=== PATIENT | female | born 1970 | race Caucasian/White ===

== ENCOUNTER 2018-08-29 08:11 | Day surgery (SDC) | payer BC ==
--- OUTSIDE RECORDS SUMMARY | 2018-08-29 08:13 | XMS REPORT ---
:1970 [facility] Address [address] [place] [address] [address] [place] [address] Care Team Providers Name Role Phone BUBBA SANTIAGO Primary Care Provider Unavailable BUBBA SANTIAGO Unavailable Unavailable Problems This patient has no known problems. Allergies, Adverse Reactions, Alerts This patient has no known allergies or adverse reactions. Medications This patient has no known medications. Encounters Start End Encounter Admission Attending Care Care Encounter Date/Time Date/Time Type Type Clinicians Facility Department ID 2018-03-11 2018-03-11 Outpatient [facility] [id number] 20:03:00 20:03:00 BUBBA Results Test Description Test Time Test Comments Text Results Atomic Results Result Comments D-Dimer, Quantitative 2018-03-12 21:38:00 Test Item Value Reference Range Comments D-Dimer, Quant (test 222 ng/mL 0-500 Please note Change in unit of code=DDQNT) measure from mg/L FEU to ng/mLA cutoff of less than 500 ng/mL DD has a negative predictive value of100% for DVT pzd261% for PE.When using D-Dimer to help rule out DVT or PE, clinical information anddisease probability should be considered.Elevated D-Dimer values are not specific for thromboembolism. Lipid [id number] 21:16:00 Test Item Value Reference Range Comments Cholesterol (test 185 mg/dL 0-200 code=CHOL) Triglycerides (test 139 mg/dL 9-200 code=TRIG) HDL (test code=HDL) 36 mg/dL 50-60 Chol/HDL (test 5.1 Ratio 0.0-4.4 code=CHOLPHDL) LDL, Calculated (test 121 mg/dL 0-130 (NOTE)RISK OF HEART code=LDLC) DISEASEPublished by [place] Heart AssociationAnalyte Optimal Boderline Increased RiskCHOL <200 200-239 >240TRIG <150 150-199 >200HDL Male: >60 <40HDL Female: >60 <50LDL <100 130-159 >160LDL NEAR OPTIMAL IS 100-129 VLDL (test code=VLDL) 28 mg/dL 5-40 LDL/HDL (test code=LDLPHDL) 3 Comprehensive Metabolic [id number] 21:16:00 Test Item Value Reference Range Comments Sodium (test code=NA) 145 mmol/L 135-145 Potassium (test code=K) 4.0 mmol/L 3.5-5.1 Chloride (test code=CL) 105 mmol/L 98-105 Carbon Dioxide (test 25 mmol/L 22-29 code=CO2) Glucose (test code=GLU) 100 mg/dL 70-115 Blood Urea Nitrogen (test 20 mg/dL 6-20 code=BUN) Creatinine (test 1.2 mg/dL 0.5-0.9 code=CREAT) Calcium (test code=CA) 9.1 mg/dL 8.3-10.5 Prot Total (test code=TP) 6.7 g/dL 6.4-8.3 Albumin (test code=ALB) 4.2 g/dL 3.5-5.2 A/G Ratio (test 1.7 Ratio code=AGRATIO) Globulin (test code=GLOB) 2.5 2.9-3.1 Bili Total (test 0.8 mg/dL 0.1-0.9 code=TBIL) Alk Phos (test 107 U/L 35-104 code=APHOS) AST (test code=AST) 21 U/L 1-32 ALT (test code=ALT) 22 U/L 1-33 BUN/Creatinine Ratio 16.7 (test code=BCRATIO) Anion Gap (test 15 mmol/L 7-16 code=AGAP) Estimated GFR (test 51 mL/min/1.73m2 eGFR (estimated Glomerular code=GFR) Filtration Rate) is an estimated value,calculated from the patient's serum creatinine using the MDRD equation.It is NOT the patient's actual GFR. The eGFR provides a more clinicallyuseful measure of kidney disease than serum creatinine alone.This calculation takes sex and race into account, if the informationis provided. If the race is not provided, and the patient isAfrican-Taj[place], multiply by 1.212. If sex is not provided, and thepatient is female, multiply by 0.742. Results for patients <18 years ofage have not been validated by the MDRD study and should be interpretedwith caution.eGFR Result Interpretation:eGFR > or=60 is in the Normal RangeeGFR < 60 may mean kidney diseaseeGFR < 15 may mean kidney failureRanges recommended by the National Kidney Foundation,http://nkdep.nih .gov [id number] 21:16:00 Test Item Value Reference Range Comments NT ProBnp (test code=PBNP) 161 pg/mL 0-124 CBC with [id number] 21:13:00 Test Item Value Reference Range Comments WBC (test code=WBC) 4.9 K/cumm 4.4-10.5 RBC (test code=RBC) 3.92 M/cumm 3.75-5.20 Hemoglobin (test code=HGB) 12.0 gm/dL 12.2-14.8 Hematocrit (test code=HCT) 35.3 % 36.5-44.4 MCV (test code=MCV) 90.1 fL 80-100 MCH (test code=MCH) 30.6 pg 27.0-32.5 MCHC (test code=MCHC) 34.0 g/dL 32.0-37.5 RDW (test code=RDW) 14.7 % 11.5-14.5 Platelet Count (test code=PLTCT) 190 K/cumm 140-440 MPV (test code=MPV) 9.1 fL Diff Method (test code=DIFFM) Auto Neutrophil (test code=NEUT) 60.3 % 36-70 Lymphocyte (test code=LYMPH) 28.1 % 12-44 Monocyte (test code=MONO) 6.1 % 0-11 Eosinophil (test code=EOS) 4.7 % 0-7 Basophil (test code=BASO) 0.7 % 0-2 Neutro Abs (test code=ANEUT) 2.9 K/cumm 1.6-7.4 Lymph Abs (test code=ALYMPH) 1.4 K/cumm 0.5-4.6 [place] Abs (test code=AMONO) 0.3 K/cumm 0.0-1.2 Eos Abs (test code=AEOS) 0.23 K/cumm 0.00-0.74 Baso Abs (test code=ABASO) 0.0 K/cumm 0.00-0.21
[2018-08-29] MEDS ORDERED: Ringers Lactate 1,000 ML IV ONE (09:01)
[2018-08-29] MEDS: OXYMETAZOLINE HCL 0.05% 30ML NAS ONE ×4 (09:02→10:22)
[2018-08-29] MEDS ORDERED: PROPOFOL 200 MG/20 ML VIAL IV ONE (09:21)
[2018-08-29] MEDS ORDERED: MIDAZOLAM HCL 2 MG/2 ML INJ ONE (09:21)
[2018-08-29] MEDS ORDERED: LIDOCAINE 2% MPF 5 ML VIAL ONE (09:22)
[2018-08-29] MEDS ORDERED: ONDANSETRON HCL 40 MG/20 ML VIAL ONE (09:22)
[2018-08-29] MEDS ORDERED: FENTANYL CITR 100 MCG/2 ML ONE (09:22)
[2018-08-29] MEDS ORDERED: ROCURONIUM 50 MG/5 ML VIAL IV ONE (09:44)
[2018-08-29] MEDS ORDERED: OFLOXACIN OTIC 0.3%-5 ML BTL ONE (09:49)
--- NOTE | 2018-08-29 10:27 | P.BOP ---
Preoperative diagnosis: ETD, L EAC lesion Postoperative diagnosis: same Primary procedure: Bilateral NE with ET dilation, left myringtomy/tube, excision EAC lesion Machine Dyer: NONE,NONE Estimated blood loss: <5ml Specimen: L EAC lesion Findings: No L HEVER Anesthesia: General Complications: None Implants: Pap I tube on L Fluids & blood products: crystalloid 450ml Transferred to: Recovery Room Condition: Good
[2018-08-29] MEDS ORDERED: GLYCOPYRROLATE 0.2 MG/ML SYR ONE (10:33)
[2018-08-29] MEDS ORDERED: NEOSTIGMINE 1 MG/ML -5 ML SYRINGE ONE (10:34)
[2018-08-29] MEDS: MEPERIDINE HCL 25 MG/0.5 ML ONE ×2 (11:03→11:08)
[2018-08-29] MEDS ORDERED: MEPERIDINE HCL 25 MG/0.5 ML ONE (11:18)
--- NOTE | 2018-08-30 19:54 | OP ---
Date of Procedure: 08/30/2018 Surgeon: Kelsey Mata MD Preoperative Diagnoses: Chronic eustachian tube dysfunction and left ear canal lesion. Postoperative Diagnoses: Chronic eustachian tube dysfunction and left ear canal lesion. Procedures: 1.Left myringotomy with tympanostomy tube placement. 2.Left excision of soft tissue ear canal lesion. 3.Bilateral nasal endoscopy with eustachian tube dilation. Indication For Procedure: Maria Teresa Carpenter presented with chronic negative middle ear pressure and roberts s a history of tympanostomy tube placement with early extrusion approximately 4 months after placemen t. The patient was also noted to have an ear canal lesion, which was verrucous in gross appearance, without prior biopsy. The risks, benefits, and alternatives to the procedure were discussed with the patient, who agreed to proceed. Procedure In Detail: The patient was brought to the operating room. She was placed under general an esthesia via oral endotracheal tube. The left ear was examined using the operating microscope. Ther e was no significant cerumen. A speculum was placed to aid in visualization of the eardrum, which ap peared mildly retracted, but without middle ear effusion. The myringotomy knife was used to make an incision in the anterior-inferior quadrant, and a Paparella type 1 tympanostomy tube was carefully pl aced across the myringotomy incision and positioned with a pick. Attention was then turned to the ea r canal. The speculum was removed and the ear canal was manually opened by retraction of the tragus. The lesion was located on the anterior wall of the ear canal, approximately half a centimeter from the meatus. The lesion was grasped with alligator forceps and under the aid of the operating microsc ope, the myringotomy blade was used to incise the base of the lesion. The lesion was completely rajiv danish and sent to Pathology for permanent section. 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 A Bovie electroc autery was used to cauterize the excision site until the area was hemostatic. To prevent bleeding, a Gelfoam sponge was compressed and rolled and inserted at the meatus in order to provide light compre ssion at the excision site. Attention was then turned to the next portion of the procedure. The hea d of bed was turned 90 degrees and the nasal cavity was packed with Afrin-soaked pledgets. After pelon e for effect, these were removed and a 0-degree endoscope was used to perform the bilateral nasal end oscopy. There was no significant septal deviations and the inferior turbinates and middle turbinates were unremarkable. There was no evidence of active sinus infection. There was a small amount of re sidual adenoid tissue without obvious obstruction of the nasopharynx. The 30-degree scope was then u sed to view the eustachian tube openings bilaterally. The mucosa of the eustachian tube was noted to be significantly edematous with no clear eustachian tube patency. The Entellus balloon device was t hen prepared for use in accordance with administrative officer's instructions. It was configured to an approxi mately 35 degree angle. The balloon device was then advanced through the nasal cavity under endoscop ic guidance through the right nasal cavity. The tip of the device was advanced into the eustachian t ube opening and passed easily with no resistance. The balloon was then advanced over the catheter an d inflated. The inflation was held for 2 minutes. After 2 minutes, the balloon was dilated and the device was carefully removed. A similar procedure was performed on the left side with successful atr aumatic dilation of the left eustachian tube. The nasopharynx and nasal cavity were then carefully s uctioned from a mild amount of blood and secretions. The patient was then returned to care of Anesth esia for awakening extubation in the operating room, which proceeded without difficulty. The patient was transported to the recovery room in stable condition and will follow up with Dr. Mata for pos toperative assessment and discussion of pathology results. PJ Voice ID: [id number] Report ID: [id number]
== END 2018-08-29 12:27 | disposition home or self-care (01) ==
LOC: OR 08:11
PROVIDERS: ATTEND Otolaryngology
PROC: 099670Z Drainage of Left Middle Ear with Drainage Device, Via Natural or Artificial Opening (ICD-10-PCS; 2018-08-29)
PROC: 097G8ZZ Dilation of Left Eustachian Tube, Via Natural or Artificial Opening Endoscopic (ICD-10-PCS; 2018-08-29)
PROC: 097F8ZZ Dilation of Right Eustachian Tube, Via Natural or Artificial Opening Endoscopic (ICD-10-PCS; 2018-08-29)
PROC: 09B47ZZ Excision of Left External Auditory Canal, Via Natural or Artificial Opening (ICD-10-PCS; principal; 2018-08-29 09:30)
DX: H68.022 Chronic Eustachian salpingitis, left ear (principal); D22.22 Melanocytic nevi of left ear and external auricular canal; I10 Essential (primary) hypertension; I69.90 Unspecified sequelae of unspecified cerebrovascular disease; Z88.0 Allergy status to penicillin; Z88.6 Allergy status to analgesic agent; Z91.013 Allergy to seafood; Z91.040 Latex allergy status; Z79.01 Long term (current) use of anticoagulants; Z82.3 Family history of stroke; Z82.49 Family history of ischemic heart disease and other diseases of the circulatory system
CPT/HCPCS: 88305; J2175; J2250; J2405; J2710; J3010